=== PATIENT | male | born 1990 | race Two or more races ===

== ENCOUNTER 2024-04-16 15:59 | Emergency (ER) | payer MEDICAID, SELFPAY ==
[2024-04-16 16:40] VITALS: BP 160/97; PULSE 77; RESP 18; TEMP 37.1; O2SAT 96; BMI 25.8
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
[2024-04-16 20:48] VITALS: BP 124/67; PULSE 89; RESP 19; TEMP 36.6; O2SAT 99
== END 2024-04-16 20:49 | disposition home or self-care (01) ==
PROVIDERS: Emergency Provider Emergency Medicine
DX: S20.212A Contusion of left front wall of thorax, initial encounter (principal); V86.59XA Driver of other special all-terrain or other off-road motor vehicle injured in nontraffic accident, initial encounter
CPT/HCPCS: 71101; 99283